=== PATIENT | male | born 1960 | race Caucasian/White ===

== ENCOUNTER 2024-03-24 07:35 | Emergency (ER) | payer OTHER, SELFPAY ==
[2024-03-24] VITALS (8 sets, daily range): BP systolic 114–143; BP diastolic 73–104; PULSE 18–104; RESP 18–22; TEMP 36.6–36.8; O2SAT 94–100
--- NOTE | ~2024-03-24 | XR_ITS ---
Clinical Indication: Shortness of breath, cough PA and lateral views of the chest: Comparison: None Findings: There is haziness in the right perihilar region. Left lung clear. Cardiomediastinal silhou ette is within normal limits. Bones and soft tissues are unremarkable. Impression: Right upper lobe pneumonia in the perihilar region. Reviewed, dictated and finalized at location . PREVENTION SPECIALIST Impression: Right upper lobe pneumonia in the perihilar region.
--- NOTE | 2024-03-24 07:38 | ECG_ITS ---
Test Date: 2024-03-24 07:48:01 Measurements Intervals [place] Rate: 86 P: 58 ME: 144 QRS: -1 QRSD: 82 T: 55 QT: 338 QTc: 405 Interpretive Statements SINUS RHYTHM WITH SINUS ARRHYTHMIA NORMAL ECG No previous ECG available for comparison Electronically Signed On 03-24-2024 18:28:19 ELECT E[employer] MAINT ENG by Sundeep Elizalde D.O.
--- NOTE | 2024-03-24 07:56 | ED_ITS ---
HPI - SOB/Dyspnea General Chief Complaint: Shortness of Breath/Dyspnea Stated Complaint: SOB X4 days, cough Time Seen by Provider: 03/24/24 07:40 History of Present Illness HPI Narrative: 64-year-old male presents emergency department for evaluation for worsening shortness of breath. Patient has been a long-time smoker and does still continue to smoke. Patient states over the last 4 days he has had increased chest tightness and shortness of breath. Patient does not use breathing t reatments and is not on oxygen at home. Patient denies any associated chest pain. Patient denies any fevers. Patient denies any sick contacts. Related Data Allergies Allergy/AdvReac Type Severity Reaction Status Date / Time No Known Allergies Allergy Verified 03/24/24 07:46 Review of Systems Review of Systems: All systems reviewed & are unremarkable except as noted in HPI and below Exam Narrative: APPEARANCE: Well appearing, no pain, no distress, well-nourished. HEAD: normocephalic, atraumatic. EYES: PERRLA/EOMI, conjunctivae clear. NOSE: Normal no drainage EARS:TMS clear with good light reflex. THROAT: Pharynx clear, no exudate. NECK: Supple. No adenopathy, no masses. RESPIRATORY: Airway patent, respirations nonlabored. Clear to auscultation bilaterally, no rales, rhonchi, wheezing. CARDIOVASCULAR: Regular rate and rhythm without murmurs rubs or gallops. ABDOMINAL: Soft, nontender, nondistended, normal bowel sounds MUSCULOSKELETAL: Moves all extremities. Strength/ROM intact, No edema, No calf tenderness. NEURO: Alert. Cranial nerves II through XII intact. Grossly intact SKIN: Warm, dry. Normal Color Course Vital Signs Vital signs: Vital Signs Temperature 97.8 F 03/24/24 07:42 Pulse Rate 95 03/24/24 07:42 Respiratory Rate 20 03/24/24 07:42 Blood Pressure 143/104 H 03/24/24 07:42 Pulse Oximetry 98 03/24/24 07:42 Oxygen Delivery Room Air 03/24/24 07:42 Temperature 98.2 F 03/24/24 10:46 Pulse Rate 84 03/24/24 10:46 Respiratory Rate 22 H 03/24/24 10:46 Blood Pressure 114/73 03/24/24 10:46 Pulse Oximetry 95 03/24/24 10:46 Oxygen Delivery Room Air 03/24/24 07:58 MDM - SOB/Dyspnea MDM Narrative Medical decision making narrative: 64-year-old male smoker presents emergency department for evaluation for worsening shortness of breath. Patient is afebrile with no leukocytosis and hemoglobin 14.7. Patient has no significant abnormalities on his CMP and patient is negative for influenza RSV and for COVID. Chest x-ray does show evidence pneumonia and patient was treated with IV Rocephin and azithromycin in the emergency department. Patient went discharge discharged home with Augmentin, azithromycin, albuterol and Tessalon Perles. Patient was encouraged to quit smoking. Patient was encouraged of close follow-up with primary care physician. All questions concerns were addressed. Differential Diagnosis Differential diagnosis: Likely acute exacerbation of chronic obstructive airways disease, congestive heart failure, community acquired pneumonia and asthma with exacerbation Lab Data Attestation: I reviewed the patient's lab results. 03/24/24 07:57 03/24/24 07:57 Labs: Lab Results 03/24/24 03/24/24 Range/Units 07:57 07:59 WBC 9.5 (4.5-10.0) K/mm3 RBC 4.09 L (4.6-6.20) M/mm3 Hgb 14.7 (14.0-18.0) g/dL Hct 42.3 (42.0-52.0) % MCV 103.4 H (80-100) fl MCH 35.9 H (26-34) pg MCHC 34.8 (32-36) g/dl RDW 11.9 (11.5-14.5) % Plt Count 252 (150-375) k/mm3 MPV 9.0 (7.4-10.4) fl Immature Gran % (Auto) 0.4 (0-0.5) % Neut % (Auto) 76.7 H (45.5-73.1) % Lymph % (Auto) 14.0 L (18.3-44.2) % [place] % (Auto) 7.7 (2.6-8.5) % Eos % (Auto) 0.8 (0-4.4) % Baso % (Auto) 0.4 (0.2-1.2) % Lymph # (Auto) 1.33 (0.9-3.2) K/mm3 [place] # (Auto) 0.7 H (0.1-0.6) K/mm3 Eos # (Auto) 0.1 (0-0.3) K/mm3 Baso # (Auto) 0.0 (0.0-0.1) K/mm3 Abs Immat Gran (auto) 0.04 H (0.00-0.031) K/mm3 Absolute Neuts (auto) 7.3 H (1.3-6.7) K/mm3 Absolute Nucleated RBC 0.000 (0.0-0.012) K/mm3 Nucleated RBC % 0.0 (0.0-0.2) % Sodium 137 (137-145) mmol/L Potassium 3.8 (3.4-5.0) mmol/L Chloride 101 (98-107) mmol/L Carbon Dioxide 27 (22-30) mmol/L Anion Gap 9 (4-12) mmol/L BUN 10 (9-20) mg/dL Creatinine 0.70 (0.7-1.3) mg/dL Estim Creat Clear Calc 81 ml/min Estimated GFR > 60 (59 - ) Glucose 111 H (65-110) mg/dL Calcium 9.3 (8.4-10.2) mg/dL Total Bilirubin 0.4 (0.2-1.3) mg/dL AST 28 (17-59) U/L ALT 14 (6-50) U/L Alkaline Phosphatase 94 (38-126) U/L Total Protein 8.0 (6.3-8.2) g/dL Albumin 4.5 (3.5-5.1) g/dL Influenza A (RT-PCR) Negative (Negative) Influenza B (RT-PCR) Negative (Negative) RSV (RT-PCR) Negative (Negative) SARS-CoV-2 RNA (RT-PCR) Negative (Negative) Imaging Data Radiologist's impression: Impressions Chest X-Ray 03/24/24 08:45 Impression: Right upper lobe pneumonia in the perihilar region. ECG Data EKG #1: EKG Interpretation: normal rate, sinus rhythm, non-specific ST changes, no ST changes, normal QRS, normal QT and NL axis Discharge Plan Discharge Clinical Impression: Pneumonia Patient Disposition: Home, Self-Care Condition: Stable Instructions: Antibiotic Form Additional Instructions: Antibiotic as directed until completed. Albuterol inhaler as needed for shortness of breath. Tessalon Perles as needed for cough. Have close follow-up with your primary care physician. Quit smoking. Prescriptions: New amoxicillin-pot clavulanate 875-125 mg tablet 1 tablet PO Q12H 7 Days Qty: 14 0RF azithromycin 250 mg tablet See Rx Instructions .ROUTE .COMPLEX Qty: 6 0RF Rx Instructions: For 250 mg dose pack: take 500 mg today (day 1), then 250 mg for 4 days (days 2-5) albuterol sulfate 90 mcg/actuation HFA aerosol inhaler 1 inh inhalation QID PRN (Reason: shortness of breath or wheezing) Qty: 6.7 0RF benzonatate 100 mg capsule 100 mg PO Q6H PRN (Reason: cough) Qty: 14 0RF Follow-up/Referrals: Chandana Aguirre MD [Primary Care Provider] - Stand Alone Forms: Work/School Release IP
[2024-03-24] MEDS: ALBUTEROL SULFATE NEB 2.5 MG/3 ML INH INHALATION (08:09)
[2024-03-24 08:18] LABS: Basophils Percent Auto 0.4 % (0.2-1.2); Eosinophils Absolute Auto 0.1 K/mm3 (0-0.3); Eosinophils Percent Auto 0.8 % (0-4.4); Hematocrit 42.3 % (42.0-52.0); Hemoglobin 14.7 g/dL (14.0-18.0); Immature Granulocyte Absolute 0.04 K/mm3 (0.00-0.031); Immature Granulocyte Percent A 0.4 % (0-0.5); Lymphocytes Absolute Auto 1.33 K/mm3 (0.9-3.2); Mean Corpuscular HGB Conc 34.8 g/dl (32-36); Mean Corpuscular Hemoglobin 35.9 pg (26-34); Mean Corpuscular Volume 103.4 fl (80-100); Monocytes Absolute Auto 0.7 K/mm3 (0.1-0.6); Monocytes Percent Auto 7.7 % (2.6-8.5); Neutrophils Absolute Auto 7.3 K/mm3 (1.3-6.7); Neutrophils Percent Auto 76.7 % (45.5-73.1); Platelet Count Result 252 k/mm3 (150-375); Red Blood Count 4.09 M/mm3 (4.6-6.20); Red Cell Distribution Width 11.9 % (11.5-14.5); White Blood Count 9.5 K/mm3 (4.5-10.0)
[2024-03-24 08:29] LABS: Alanine Aminotransferase 14 U/L (6-50); Albumin Level 4.5 g/dL (3.5-5.1); Alkaline Phosphatase 94 U/L (38-126); Anion Gap 9 mmol/L (4-12); Aspartate Amino Transferase 28 U/L (17-59); Bilirubin,Total 0.4 mg/dL (0.2-1.3); Blood Urea Nitrogen 10 mg/dL (9-20); Calcium 9.3 mg/dL (8.4-10.2); Carbon Dioxide 27 mmol/L (22-30); Chloride 101 mmol/L (98-107); Estimated CRCL calculation 81 ml/min; Estimated Glomerular Filt Rate > 60; Glucose 111 mg/dL (65-110); Potassium 3.8 mmol/L (3.4-5.0); Sodium 137 mmol/L (137-145)
[2024-03-24 08:55] LABS: Influenza A QL RT-PCR Negative (Negative); Influenza B QL RT-PCR Negative (Negative); RSV RNA, RT-PCR Negative (Negative); SARS-CoV-2 RNA PCR Negative (Negative)
[2024-03-24] MEDS: AZITHROMYCIN 500 MG/NS 250 ML 500 MG/250 ML BAG 250 MG IVPB (10:04)
== END 2024-03-24 10:55 | disposition home or self-care (01) ==
PROVIDERS: Emergency Provider Emergency Medicine; PCP Family Medicine
DX: J18.9 Pneumonia, unspecified organism (principal); Z20.822 Contact with and (suspected) exposure to COVID-19; F17.200 Nicotine dependence, unspecified, uncomplicated
CPT/HCPCS: 36415; 71046; 80053; 85025; 87637; 93005; 94640; 96365; 96367; 99284; J0456; J0696